=== PATIENT | female | born 1960 | race Caucasian/White ===

== ENCOUNTER 2017-04-16 13:51 | Emergency (ER) | payer MEDICARE, OTHER ==
[~2017-04-16] VITALS: Ht 167.6 cm; Wt 62.6 kg
[~2017-04-16 13:51] MED LIST: ABILIFY2 MG; ADVIL200 MG PO; BREO ELLIPTA1 POW IH; CLORAZEPATE DIP15 MG PO; CLORAZEPATE PO; CLORAZEPATE7.5 MG PO; DALIRESP500 MCG PO; DUEXIS 26.6 MG-1 TAB PO; DULOXETINE60 MG PO; GABAPENTIN 600600 MG PO; GABAPENTIN300 MG PO; HYDROMORPH INJ; IBUPROFEN200 MG PO; INCRUSE EL62.5 MCG/A IH; LIDODERM1 EACH TP; LORTAB 7.5/5001 TA1 PO; METAXALONE800 M1; NORCO 325 MG-101 TAB PO; NYSTATIN SU60 ML/BOT PO; OLEPTRO150 MG PO; OXYCODONE SR 4040 MG; OXYCONTIN30 MG PO; OXYCONTIN40 M1 PO; PAROXETINE20 M1; PATANOL 5 ML5 ML OP; PAXIL20 MG PO; PERCOCET1 TAB PO; PHENERGAN12.5 M3 PO; POTASSIUM CHLO20 ME4 PO; PRILOSEC20 M1 PO; RIZATRIPTAN BENZ5 MG PO; SINGULAIR 10 MG10 MG PO; SKELAXIN 800MG800 MG PO; SYNTHROID 0.10.15 MG PO; TOPIRAMATE 100100 M1 PO; TOPIRAMATE100 MG PO; TRANXENE T-TAB7.5 MG PO; TRAZODONE150 MG PO; VENTOLIN H0.09 MG/Ac IH; VOLTAREN100 GM TP; XARELTO15 MG PO; XOPENOX 0.0.63 MG/3 IN; ZOFRAN4 MG PO; Zithromax500 MG PO
--- NOTE | 2017-04-16 14:22 | Urgent Treatment Center Report ---
History of Present Issue Date/Time Seen by Provider 04/16/17 4587 Visit Reason Pt arrived:Wheelchair Presenting Problem:STATES SHE FELL YESTERDAY AND INJURED HER LEFT WRIST. STATES SHE IS STILL HAVING SEVERE PAIN TODAY. ALSO WOKE UP WITH A MIGRAINE. Location if Accident: Onset of symptoms date/time:/ or onset unknown for:MEDICAL HX UNKNOWN Have you (or family members/close friends) recently traveled outside the [place]? N If Yes, where/when: Have you had exposure to infectious disease within the past month? TB? Other? Specify: Patient and family state that yesterday she lost her balance and fell landing on her left wrist and shoulder. States that she has had shoulder surgery in the past and now having pain swelling and discoloration State that today she awoke and having severe pain and also having a migraine headache and she has taken her normal medication and it has not helped ALLERGIES Coded Allergies: yellow dye (Intermediate, I-HIVES 02/20/16) cephalexin (From KEFLEX) (Mild, 02/20/16) amoxicillin (From AUGMENTIN) (NA-DIARRHEA 02/20/16) baclofen (08/27/16) clavulanic acid (From AUGMENTIN) (NA-DIARRHEA 02/20/16) clindamycin (08/27/16) fentanyl (From DURAGESIC) (08/27/16) morphine (From MS CONTIN) (08/27/16) oxycodone (05/31/16) NSAIDS (Non-Steroidal Anti-Inflamma (UPSET STOMACH 08/27/16) Home Medications Active Scripts Azithromycin (Zithromax) 500 MG PO DAILY #3 TAB Prov: 08/31/16 Potassium Chloride 20 MEQ PO BID #60 TAB Ref 1 Prov: 08/31/16 NYSTATIN (Nystatin Susp 100,000 Units/Ml 60ML) 10 ML PO QID #120 ML Ref 1 Prov: 08/31/16 Reported Medications Hydromorphone HCl in 0.9% NaCl (Hydromorphone 100 MG/50 Ml-Ns) 0 INJ CONSTANT ONDANSETRON HCL (Zofran 4MG Tab) 4 MG PO Q6HP PRN NAUSEA AND VOMITING IBUPROFEN/FAMOTIDINE (Duexis 800-26.6 MG Tablet) 1 TAB PO TID UMECLIDINIUM BROMIDE (Incruse Ellipta) 62.5 MCG IH DAILY Levalbuterol Hcl (Xopenex 0.63MG NEB) 0.63 MG IN TID Clorazepate Dipotassium 15 MG PO TID Rizatriptan Benzoate (Rizatriptan) 5 MG PO DAILYP PRN MIGRAINE Diclofenac Sodium (Voltaren) 2 GM TP QID TRAZODONE HCL (Oleptro ER) 50 MG PO QHS Topiramate 100 MG PO QHS Lidocaine (Lidoderm) 1 EACH TP DAILY PRN PAIN Levothyroxine Sodium (Synthroid 0.15MG) 0.15 MCG PO DAILY FLUTICASONE/VILANTEROL (Breo Ellipta 100-25 Mcg INH) 1 POW IH DAILY Metaxalone (Skelaxin 800MG Tab) 800 MG PO TID Gabapentin (Gabapentin 600MG) 600 MG PO QID Roflumilast (Daliresp) 500 MCG PO DAILY DULOXETINE HCL (Duloxetine) 60 MG PO DAILY #30 History Medical History General CAD? No Angina: No VA: No Hypertension? No Hyperlipidemia? No CHF? No DVT? No PE? No COPD? Yes Asthma? No Anemia? No GERD? Yes Gastric ulcers? No GI Bleed? No Hernia? No Thyroid Problems? Yes Hypothyroidism? Yes CVA? No Seizures? No Diabetes? No Renal Insuffiency? No UTI? No Stones? No GB Disease: No Nephritic Syndrome? No Asplenia? No Hepatitis? No Sickle Cell Disease? No Arthritis? Yes Migraines? Yes Cataracts? No Glaucoma? No MRSA? No HIV? No TB? No Anxiety? No Depression? Yes Cancer? No More? Yes Additional hx: L HIP FRACTURE, RIGHT SHOULDER FRACTURE OSTEOPOROSIS Immunization HX DT/Tetanus UNKNOWN Flu 2015- Flu Season Pneumonia Refuses Surgical Hx Previous Surgery?Y Tubal Ligation BREAST TUMOR HYSTERECTOMY PAIN PUMP INSERTION 2013 BONE GRAFT IN MOUTH L SHOULDER X2 Family History Family HX Diabetes Yes CAD Yes Hypertension Yes Hyperlipidemia No Cancer Yes TB No Social History Smoking Hx Smoker: Current Every Day Smoker Tobacco: Yes Type Cigarettes Packs/day < 1 Pack Alcohol Alcohol: No Review of Systems All Other Systems Reviewed and Negative Comment Pain, in left shoulder and pain, swelling and discoloration in left wrist after falling, also complaining of migraine headache State that she has them frequently but her presribed medication has not helped with pain Physical Exam Vital Signs Vital Signs Date Time Temp Pulse Resp B/P Pulse O2 O2 Flow FiO2 Ox Delivery Rate 04/16 1403 70 18 119/70 93 04/16 1355 70 18 119/70 93 General Appearance normal appearance, WD/WN, no apparent distress Respiratory Status Yes: trachea midline, chest symmetrical, non tender chest. No: respiratory distress. Cardiovascular normal exam, regular rate/rhythm, no peripheral edema, no gallop Extremities Pain welling and discoloration in left wrist area, pain in left shoulder after losing her balance yesterday and falling landed on her left side. Neurologic alert, pail tester II-XII nml as tested, normal exam, Complaining of migraine headache Medical Decision Making LABS/Meds/Orders Pt receiving controlled substance in ED? No Results/Orders Current Medication Orders Sig/Susan Start time Last Medication Dose Route Stop Time Status Admin Acetaminophen 650 MG ONCE ONE 04/16 1515 AC PO 04/16 1516 Orders Procedure Date/time Status [id number] VIEWS 04/16 1417 Active WRIST-3 VIEWS-LT 04/16 1412 Active XRAY/CT/US XRAY/CT/US XRAY shoulder, wrist XR interpretation by reviewed by me Xray Results Fracture of the distal radius, Progress [facility] Progress Notes Comment Patient state that headache is improved and she has pain medication at home to take for her wrist until she sees Orthopedics Departure Departure Time of Disposition 1509 Disposition DC Home or Self Care(routine) Clinical Impression Primary Impression: Wrist fracture Qualifiers: Encounter type: initial encounter Fracture type: closed Laterality: left Qualified Code: S62.102A - Fracture of unspecified carpal bone, left wrist, initial encounter for closed fracture Condition STABLE Referrals Diane Gomez MD (Family) Simon Monge MD: Tomorrow-Call Office SEDA BA MD: Tomorrow-Call Office Patient Instructions DI for Wrist Fracture, How To Perform RICE (Rest, Ice, Compress, Elevate) Additional Instructions *RICE, Rest the extremity, Ice 15-20 minutes 3-4 times daily, Compress- wear the alex wrap as discussed as much as possible to help reduce swelling and pain, Elevate the extremity when at rest *Alex wrap is for support and help control swelling, use it except in the shower. Be sure that is not to tight but not to loose either *Elevate when resting *Ibuprofen 600-800mg every 6-8 hours as needed for pain an inflammation. If need something more can take Tylenol in between doses of Ibuprofen to help Immediately follow up for new or worsening of symptoms, or no noticeable improvement over the next 3-5 days Discharge Counseling Counseled pt/family regarding diagnosis, test results, medications/RX, home care, follow up needs at [phone]
--- NOTE | 2017-04-16 14:22 | Urgent Treatment Center Report ---
History of Present Issue Date/Time Seen by Provider 04/16/17 7157 Visit Reason Pt arrived:Wheelchair Presenting Problem:STATES SHE FELL YESTERDAY AND INJURED HER LEFT WRIST. STATES SHE IS STILL HAVING SEVERE PAIN TODAY. ALSO WOKE UP WITH A MIGRAINE. Location if Accident: Onset of symptoms date/time:/ or onset unknown for:MEDICAL HX UNKNOWN Have you (or family members/close friends) recently traveled outside the [place]? N If Yes, where/when: Have you had exposure to infectious disease within the past month? TB? Other? Specify: Patient and family state that yesterday she lost her balance and fell landing on her left wrist and shoulder. States that she has had shoulder surgery in the past and now having pain swelling and discoloration State that today she awoke and having severe pain and also having a migraine headache and she has taken her normal medication and it has not helped ALLERGIES Coded Allergies: yellow dye (Intermediate, I-HIVES 02/20/16) cephalexin (From KEFLEX) (Mild, 02/20/16) amoxicillin (From AUGMENTIN) (NA-DIARRHEA 02/20/16) baclofen (08/27/16) clavulanic acid (From AUGMENTIN) (NA-DIARRHEA 02/20/16) clindamycin (08/27/16) fentanyl (From DURAGESIC) (08/27/16) morphine (From MS CONTIN) (08/27/16) oxycodone (05/31/16) NSAIDS (Non-Steroidal Anti-Inflamma (UPSET STOMACH 08/27/16) Home Medications Active Scripts Azithromycin (Zithromax) 500 MG PO DAILY #3 TAB Prov: 08/31/16 Potassium Chloride 20 MEQ PO BID #60 TAB Ref 1 Prov: 08/31/16 NYSTATIN (Nystatin Susp 100,000 Units/Ml 60ML) 10 ML PO QID #120 ML Ref 1 Prov: 08/31/16 Reported Medications Hydromorphone HCl in 0.9% NaCl (Hydromorphone 100 MG/50 Ml-Ns) 0 INJ CONSTANT ONDANSETRON HCL (Zofran 4MG Tab) 4 MG PO Q6HP PRN NAUSEA AND VOMITING IBUPROFEN/FAMOTIDINE (Duexis 800-26.6 MG Tablet) 1 TAB PO TID UMECLIDINIUM BROMIDE (Incruse Ellipta) 62.5 MCG IH DAILY Levalbuterol Hcl (Xopenex 0.63MG NEB) 0.63 MG IN TID Clorazepate Dipotassium 15 MG PO TID Rizatriptan Benzoate (Rizatriptan) 5 MG PO DAILYP PRN MIGRAINE Diclofenac Sodium (Voltaren) 2 GM TP QID TRAZODONE HCL (Oleptro ER) 50 MG PO QHS Topiramate 100 MG PO QHS Lidocaine (Lidoderm) 1 EACH TP DAILY PRN PAIN Levothyroxine Sodium (Synthroid 0.15MG) 0.15 MCG PO DAILY FLUTICASONE/VILANTEROL (Breo Ellipta 100-25 Mcg INH) 1 POW IH DAILY Metaxalone (Skelaxin 800MG Tab) 800 MG PO TID Gabapentin (Gabapentin 600MG) 600 MG PO QID Roflumilast (Daliresp) 500 MCG PO DAILY DULOXETINE HCL (Duloxetine) 60 MG PO DAILY #30 History Medical History General CAD? No Angina: No SC: No Hypertension? No Hyperlipidemia? No CHF? No DVT? No PE? No COPD? Yes Asthma? No Anemia? No GERD? Yes Gastric ulcers? No GI Bleed? No Hernia? No Thyroid Problems? Yes Hypothyroidism? Yes CVA? No Seizures? No Diabetes? No Renal Insuffiency? No UTI? No Stones? No GB Disease: No Nephritic Syndrome? No Asplenia? No Hepatitis? No Sickle Cell Disease? No Arthritis? Yes Migraines? Yes Cataracts? No Glaucoma? No MRSA? No HIV? No TB? No Anxiety? No Depression? Yes Cancer? No More? Yes Additional hx: L HIP FRACTURE, RIGHT SHOULDER FRACTURE OSTEOPOROSIS Immunization HX DT/Tetanus UNKNOWN Flu 2015- Flu Season Pneumonia Refuses Surgical Hx Previous Surgery?Y Tubal Ligation BREAST TUMOR HYSTERECTOMY PAIN PUMP INSERTION 2013 BONE GRAFT IN MOUTH L SHOULDER X2 Family History Family HX Diabetes Yes CAD Yes Hypertension Yes Hyperlipidemia No Cancer Yes TB No Social History Smoking Hx Smoker: Current Every Day Smoker Tobacco: Yes Type Cigarettes Packs/day < 1 Pack Alcohol Alcohol: No Review of Systems All Other Systems Reviewed and Negative Comment Pain, in left shoulder and pain, swelling and discoloration in left wrist after falling, also complaining of migraine headache State that she has them frequently but her presribed medication has not helped with pain Physical Exam Vital Signs Vital Signs Date Time Temp Pulse Resp B/P Pulse O2 O2 Flow FiO2 Ox Delivery Rate 04/16 1403 70 18 119/70 93 04/16 1355 70 18 119/70 93 General Appearance normal appearance, WD/WN, no apparent distress Respiratory Status Yes: trachea midline, chest symmetrical, non tender chest. No: respiratory distress. Cardiovascular normal exam, regular rate/rhythm, no peripheral edema, no gallop Extremities Pain welling and discoloration in left wrist area, pain in left shoulder after losing her balance yesterday and falling landed on her left side. Neurologic alert, tubing machine tender II-XII nml as tested, normal exam, Complaining of migraine headache Medical Decision Making LABS/Meds/Orders Pt receiving controlled substance in ED? No Results/Orders Current Medication Orders Sig/Susan Start time Last Medication Dose Route Stop Time Status Admin Acetaminophen 650 MG ONCE ONE 04/16 1515 AC PO 04/16 1516 Orders Procedure Date/time Status [id number] VIEWS 04/16 1417 Active WRIST-3 VIEWS-LT 04/16 1412 Active XRAY/CT/US XRAY/CT/US XRAY shoulder, wrist XR interpretation by reviewed by me Xray Results Fracture of the distal radius, Progress [facility] Progress Notes Comment Patient state that headache is improved and she has pain medication at home to take for her wrist until she sees Orthopedics Departure Departure Time of Disposition 1509 Disposition DC Home or Self Care(routine) Clinical Impression Primary Impression: Wrist fracture Qualifiers: Encounter type: initial encounter Fracture type: closed Laterality: left Qualified Code: S62.102A - Fracture of unspecified carpal bone, left wrist, initial encounter for closed fracture Condition STABLE Referrals Diane Gomez MD (Family) Simon Monge MD: Tomorrow-Call Office SEDA BA MD: Tomorrow-Call Office Patient Instructions DI for Wrist Fracture, How To Perform RICE (Rest, Ice, Compress, Elevate) Additional Instructions *RICE, Rest the extremity, Ice 15-20 minutes 3-4 times daily, Compress- wear the alex wrap as discussed as much as possible to help reduce swelling and pain, Elevate the extremity when at rest *Alex wrap is for support and help control swelling, use it except in the shower. Be sure that is not to tight but not to loose either *Elevate when resting *Ibuprofen 600-800mg every 6-8 hours as needed for pain an inflammation. If need something more can take Tylenol in between doses of Ibuprofen to help Immediately follow up for new or worsening of symptoms, or no noticeable improvement over the next 3-5 days Discharge Counseling Counseled pt/family regarding diagnosis, test results, medications/RX, home care, follow up needs at [phone]
[2017-04-16 15:24] VITALS: BP 119/70
--- NOTE | 2017-04-16 16:10 | RADIOLOGY REPORT PS360 ---
[id number] VIEWS HISTORY: shoulder pain ORDERING PHYSICIAN: ENIO KELLY APRN PATIENT AGE: 56 years COMPARISON: 02/20/2016 FINDINGS: There has been prior ORIF of comminuted left humeral head and neck fracture with a bone plate and multiple screws present. A bone fragment is present inferior to the glenoid which measures 2 cm. This is not readily apparent on the previous shoulder film of -16 and could represent an acute fracture of the glenoid which may be seen with shoulder dislocation. No dislocation is evident. Please correlate with clinical findings. This could also be sequela from old injury. No dislocation. IMPRESSION: 1. There is avulsion fracture of the anterior aspect of the glenoid. This is age indeterminate. 2. Prior ORIF left humerus
--- NOTE | 2017-04-16 16:10 | RADIOLOGY REPORT PS360 ---
WRIST-3 VIEWS-LT HISTORY: Left wrist pain following injury FALL; LT WRIST PAIN ORDERING PHYSICIAN: ENIO KELLY APRN PATIENT AGE: 56 years COMPARISON: None FINDINGS: Impacted fracture present involving the distal aspect of the radius with mild dorsal angulation of the distal fracture fragment. There is mild displacement of the distal fracture fragment by approximately 4 mm. Intra-articular comminuted is also suspected. There is avulsion of the ulnar styloid. IMPRESSION: Colles' fracture of the left wrist as described above
== END 2017-04-16 15:24 | disposition home or self-care (01) ==
LOC: UTC 13:51 → ER 13:51 → UTC 14:08
DX: S52.502A Unspecified fracture of the lower end of left radius, initial encounter for closed fracture (principal); W01.0XXA Fall on same level from slipping, tripping and stumbling without subsequent striking against object, initial encounter; Y92.009 Unspecified place in unspecified non-institutional (private) residence as the place of occurrence of the external cause; Z79.899 Other long term (current) drug therapy; R51 Headache; K21.9 Gastro-esophageal reflux disease without esophagitis; Z72.0 Tobacco use

== ENCOUNTER → 2017-04-26 | Outpatient (CLI) | payer MEDICARE, OTHER ==
--- NOTE | 2017-04-26 11:54 | RADIOLOGY REPORT PS360 ---
CT HEAD W/O CONTRAST HISTORY: Posttraumatic headache HEAD INJURY, HIT HEAD SAT 8-26, MIGRAINE SINCE ORDERING PHYSICIAN: Diane Gomez MD PATIENT AGE: 56 years COMPARISON: 08/20/2015 TECHNIQUE: Axial images obtained without contrast. Brain and bone windows reviewed. FINDINGS: No midline shift, mass effect, intracranial hemorrhage, hydrocephalus, or extra-axial fluid collection is evident. The calvarium has an unremarkable appearance. No mastoid effusion. There is mild mucosal thickening of the maxillary sinuses.. IMPRESSION: Negative CT head without contrast. No acute finding.
== END ==
LOC: RAD 08:15
DX: S09.90XA Unspecified injury of head, initial encounter (principal)